=== PATIENT | male | born 1985 | race African-American/Black ===

== ENCOUNTER 2022-10-06 15:15 | Emergency (ER) | payer OTHER ==
[~2022-10-06] VITALS: Ht 180.3 cm; Wt 81.6 kg
[2022-10-06] MEDS ORDERED: GLUCOTROL XL5 MG PO (15:46)
== END 2022-10-06 19:13 | disposition home or self-care (01) ==
LOC: ER 15:15
DX: N47.6 Balanoposthitis (principal)